=== PATIENT | female | born 1960 | race Caucasian/White ===

== ENCOUNTER 2016-12-22 10:32 | Outpatient (CLI) | END 2016-12-22 10:33 | disposition home or self-care (01) | LOC: LAB 10:32 | PROVIDERS: ATTEND Nurse Practitioner | DX: E03.9 Hypothyroidism, unspecified (principal) | CPT/HCPCS: 36415; 84443 ==

== ENCOUNTER 2017-01-19 16:30 | Outpatient (CLI) | END 2017-01-19 16:31 | disposition home or self-care (01) | LOC: LAB 16:30 | PROVIDERS: ATTEND Nurse Practitioner | DX: E03.9 Hypothyroidism, unspecified (principal) | CPT/HCPCS: 36415; 84443 ==

== ENCOUNTER 2017-03-09 14:41 | Outpatient (CLI) ==
[2017-03-09 15:00] LABS: BASOPHILS % (AUTO) 0.4 % (0.0-3.0); EOSINOPHILS # (AUTO) 0.1 K/ul (0.0-0.7); EOSINOPHILS % (AUTO) 1.7 % (0.0-7.0); HEMATOCRIT 41.8 % (37.0-47.0); HEMOGLOBIN 14.7 g/dl (12.0-16.0); IMMATURE GRANULOCYTE % (AUTO) 0.1 % (0.0-5.0); LYMPHOCYTES # (AUTO) 2.2 K/uL (0.60-3.4); LYMPHOCYTES % (AUTO) 29.9 (10.0-50.0); MEAN CORPUSCULAR HGB CONC 35.2 (31.8-35.4); MEAN CORPUSCULAR VOLUME 85.3 fl (81.0-99.0); MONOCYTES # (AUTO) 0.5 K/uL (0.4-2.0); MONOCYTES % (AUTO) 6.9 (0-10); NEUTROPHILS # (AUTO) 4.4 K/ul (2.0-6.9); PLATELET COUNT 183 10^3/uL (140-440); WHITE BLOOD COUNT 7.26 K/ul (4.6-10.2)
[2017-03-09 15:05] LABS: BILIRUBIN,URINE 1+ (NEGATIVE); KETONES,URINE Negative (NEGATIVE); LEUKOCYTE ESTERASE ,URINE Negative (NEGATIVE); NITRITE,URINE Negative (NEGATIVE); PH,URINE 5.5 (5-9); PROTEIN,URINE Negative (NEGATIVE); URINE, BLOOD Trace-intact (NEGATIVE)
[2017-03-09 15:19] LABS: ADD URINE MICROSCOPIC YES; BACTERIA,URINE TRACE (NOT PRESENT)
[2017-03-09 15:37] LABS: ALANINE AMINOTRANSFERASE < 6 U/L (12-78); ALBUMIN 3.7 g/dL (3.4-5.0); ALBUMIN/GLOBULIN RATIO 1.06; ALKALINE PHOSPHATASE 76 U/L (42-98); ANION GAP 10.6; ASPARTATE AMINO TRANSFERASE 10 U/L (15-37); BILIRUBIN,DIRECT 0.28 mg/dL (0.00-0.30); BILIRUBIN,TOTAL 0.73 mg/dL (0.00-1.20); BLOOD UREA NITROGEN 13 mg/dL (7-18); BUN/CREATININE RATIO 16.45; CALCIUM 8.3 mg/dL (8.2-10.2); CARBON DIOXIDE 27 mmol/L (21-32); CHLORIDE 105 mmol/L (98-107); CHOL/HDL RATIO 5.1 (4.5-5.5); CHOLESTEROL 173 mg/dL (0-200); CREATININE 0.79 mg/dL (0.60-1.30); GLUCOSE 94 mg/dL (70-110); HDL CHOLESTEROL 34 mg/dL (35-80); PHOSPHORUS 3.2 mg/dL (2.5-4.9); POTASSIUM 3.6 mmol/L (3.5-5.10); SODIUM 139 mmol/L (136-145); TOTAL PROTEIN 7.2 g/dL (6.4-8.2); TRIGLYCERIDES 120 mg/dL (30-150); VLDL CHOLESTEROL 24 mg/dL (2-30)
== END 2017-03-09 14:42 | disposition home or self-care (01) ==
LOC: LAB 14:41
PROVIDERS: ATTEND Nurse Practitioner
DX: E03.9 Hypothyroidism, unspecified (principal); F32.9 Major depressive disorder, single episode, unspecified; F41.9 Anxiety disorder, unspecified; I05.9 Rheumatic mitral valve disease, unspecified; Z00.00 Encounter for general adult medical examination without abnormal findings; Z79.01 Long term (current) use of anticoagulants
CPT/HCPCS: 36415; 80053; 80061; 81001; 82248; 84100; 84443; 85025

== ENCOUNTER 2017-07-19 15:38 | Outpatient (CLI) | END 2017-07-19 15:39 | disposition home or self-care (01) | LOC: LAB 15:38 | PROVIDERS: ATTEND Nurse Practitioner | DX: E03.9 Hypothyroidism, unspecified (principal) | CPT/HCPCS: 36415; 84443 ==

== ENCOUNTER 2017-11-05 12:28 | Outpatient (CLI) | END 2017-11-05 12:29 | disposition home or self-care (01) | LOC: LAB 12:28 | PROVIDERS: ATTEND Nurse Practitioner | DX: E03.9 Hypothyroidism, unspecified (principal); F32.9 Major depressive disorder, single episode, unspecified; F41.9 Anxiety disorder, unspecified; I05.9 Rheumatic mitral valve disease, unspecified; Z79.01 Long term (current) use of anticoagulants; Z79.890 Hormone replacement therapy; Z86.718 Personal history of other venous thrombosis and embolism | CPT/HCPCS: 36415; 80053; 80061; 83735; 84100; 84443; 85025 ==

== ENCOUNTER 2017-12-07 14:49 | Emergency (ER) ==
[2017-12-07 14:58] VITALS: BP 147/97; TEMP 98.4; BMI 25.2
--- NOTE | 2017-12-07 18:08 | ED.PDOC ---
General ED Provider: Dr. HALI ESPINOZA Chief Complaint: Respiratory Complaint Stated Complaint: Feeling bad. Exposed to influenza type B through her boyfriend. He was prescribed Tamiflu and prednisone yesterday. Has felt respiratory congestion but no fever or chills Time Seen by Physician: 17:50 Mode of Arrival: Walk-In Information Source: Patient Primary Care Provider: CHAD ARMENDARIZ Nursing and Triage Documentation Reviewed and Agree: Yes Reviewed sepsis parameters & appropriate labs ordered?: Yes System Inflammatory Response Syndrome: Not Applicable Sepsis Protocol: For patient's 13 years and over: Temp is 96.8 and below OR 101 and greater Pulse >90 BPM Resp >20/minute Acutely Altered Mental Status Are patient's symptoms suggestive of a new infection, such as: -Pneumonia -Skin, Soft Tissue -Endocarditis -UTI -Bone, Joint Infection -Implantable Device -Acute Abdominal Infection -Wound Infection -Meningitis -Blood Stream Catheter Infection -Unknown System Inflammatory Response Syndrome: Not Applicable Respiratory Complaint Exam - Respiratory Complaint/Exam Symptoms Are: Still present Timing: Constant Initial Severity: Moderate Current Severity: Mild Location: Throat, Chest Character: Reports: Non-productive cough, Dry cough Aggravating: Reports: None Alleviating: Reports: None Associated Signs and Symptoms: Reports: Wheezing Related History: Denies: Similar episode, Allergic reaction, Seasonal allergies History of Healthcare-Acquired Pneumonia: No Related Surgical History: Reports: None Pulmonary Embolism Risk Factors: None Cardiac Risk Factors: Reports: None Pseudomonas Risk Factors: Reports: None Tuberculosis Risk Factors: Reports: None Status Asthmaticus Risk Factors: Reports: None Home Oxygen Use: No Recent Stress Test: No Recent Echo/LV Function: No Current Antibiotic Use: No Current Asthma Medication Use: No Respiratory Distress: None Inadequate Respiratory Effort: No Dysphagia Present: No Stridor Present: No JVD Present: No Accessory Muscle Use: No Retractions: Not Present Diminished Breath Sounds: No Sinus Tenderness: None Grunting Respirations: No Kussmaul Respirations: No Differential Diagnoses: Influenza Review of Systems - Review Of Systems Constitutional: Reports: Malaise Eyes: Reports: No symptoms Ears, Nose, Mouth, Throat: Reports: Throat pain Respiratory: Reports: Cough, Wheezing Cardiac: Reports: No symptoms GI: Reports: No symptoms : Reports: No symptoms Musculoskeletal: Reports: No symptoms Skin: Reports: No symptoms Neurological: Reports: No symptoms Endocrine: Reports: No symptoms Hematologic/Lymphatic: Reports: No symptoms All Other Systems: Reviewed and Negative Past Medical History - Past Medical History Endocrine: Reports: None Cardiovascular: Reports: None Respiratory: Reports: None Hematological: Reports: None Gastrointestinal: Reports: None Genitourinary: Reports: None Neuro/Psych: Reports: None Musculoskeletal: Reports: None Cancer: Reports: None Last Menstrual Period: na - Surgical History General Surgical History: Reports: None - Family History Family History: Reports: None - Social History Smoking Status: Current every day smoker Hx Substance Use: No Alcohol Screening: None - Immunizations Tetanus Shot up to Date: Yes Physical Exam - Physical Exam Appearance: Well-appearing Ill-appearing: None Pain Distress: None Eyes: BRIJESH, EOMI, Conjunctiva clear ENT: Ears normal, Nose normal, Erythema Neck: Supple (slight tender peritonsillar) Respiratory: Airway patent, Breath sounds clear, Breath sounds equal (No wheezing or crackles) Cardiovascular: RRR, Pulses normal GI/: Soft, Nontender, No masses Musculoskeletal: Normal strength Skin: Warm Neurological: Sensation intact, Alert, Oriented Psychiatric: Affect appropriate Re-Evaluation - Re-Evaluation Time of Re-Evaluation: 18:20 Status: Unchanged Vital Signs Stable: Yes Appearance: NAD Lungs: Clear Skin: Warm and Dry Neuro: Alert and Oriented X3 CV: RRR Additional Comments: Explained results of testing Critical Care Note - Critical Care Note Total Time (mins): 0 Course - Course Orders, Labs, Meds: Lab Review 12/07/17 16:40 Influ A Molecular Assay Negative by naat Influ B Molecular Assay Negative by naat Orders Category Date Time Status FLU A/B MOLECULAR Stat LAB 12/07/17 16:40 Completed RAPID STREP SCREEN [MOLECULAR GROUP A STREP] Stat LAB 12/07/17 16:40 Completed Vital Signs: Temp Pulse Resp BP Pulse Ox 12/07/17 14:51 98.4 F 86 18 147/97 H 96 Departure - Departure Time of Disposition: 18:30 Disposition: HOME SELF-CARE Discharge Problem: Upper respiratory infection, viral Condition: Good Pt referred to PMD for follow-up: Yes (1 wk) IPMP verified?: No Additional Instructions: Explained since exposed to Type B influenza, based upon her symptoms will Rx Tamiflu to begin Stay well hydrated Take mucinex twice daily for relief of congestion F/U PCP in 1 week or return to ER if worsens Prescriptions: Oseltamivir Phosphate [Tamiflu] 75 mg PO Q12HR #10 tab Allergies/Adverse Reactions: Allergies acetaminophen [From Darvocet-N 100] Allergy (Verified 12/07/17 15:00) ciprofloxacin [From Cipro] Allergy (Verified 12/07/17 15:00) ciprofloxacin HCl [From Cipro] Allergy (Verified 12/07/17 15:00) propoxyphene napsylate [From Darvocet-N 100] Allergy (Verified 12/07/17 15:00) Home Medications: Ambulatory Orders Oseltamivir Phosphate [Tamiflu] 75 mg PO Q12HR #10 tab 12/07/17
== END 2017-12-07 18:27 | disposition home or self-care (01) ==
LOC: ED 14:49
DX: J06.9 Acute upper respiratory infection, unspecified (principal); F17.210 Nicotine dependence, cigarettes, uncomplicated
CPT/HCPCS: 87502; 87651; 99282

== ENCOUNTER 2018-04-08 12:37 | Outpatient (CLI) ==
--- NOTE | 2018-04-08 13:45 | DI ---
EXAM: Six views of the cervical spine. History: Cervical radiculopathy. Findings: No acute fracture or subluxation of the cervical spine. No prevertebral soft tissue swell ing. Predental space is not widened. Mild to moderate disc space narrowing at C5-6 with small osteo phytes. The oblique images demonstrate moderate neural foraminal narrowing on the left at C5-6. Impression: 1. No acute osseous abnormality of the cervical spine. 2. Degenerative changes at C5-6. Recommend correlation with CT or MRI.
--- NOTE | 2018-04-08 13:47 | DI ---
EXAM: Radiographs, lumbar spine HISTORY: Lumbar radiculopathy. COMPARISON: None available. TECHNIQUE: Five views. FINDINGS: Mild right convex curvature centered at the thoracolumbar junction noted. Alignment is no rmal. Vertebral body heights and disc heights are maintained. Mild multilevel endplate osteophyte f ormation and facet arthropathy noted. No fracture identified. Inferior vena cava filter noted with clips present in the abdomen. Atherosclerotic calcifications are present. IMPRESSION: Mild multilevel degenerative changes.
== END 2018-04-08 12:38 | disposition home or self-care (01) ==
LOC: RAD 12:37
PROVIDERS: ATTEND Pain Medicine Interventional Pain Medicine
DX: M54.12 Radiculopathy, cervical region (principal); M48.02 Spinal stenosis, cervical region; M47.812 Spondylosis without myelopathy or radiculopathy, cervical region; M51.16 Intervertebral disc disorders with radiculopathy, lumbar region; M51.17 Intervertebral disc disorders with radiculopathy, lumbosacral region; M51.36 Other intervertebral disc degeneration, lumbar region; M51.37 Other intervertebral disc degeneration, lumbosacral region; M47.816 Spondylosis without myelopathy or radiculopathy, lumbar region; M47.817 Spondylosis without myelopathy or radiculopathy, lumbosacral region

== ENCOUNTER 2018-12-06 15:23 | Outpatient (CLI) | END 2018-12-06 15:24 | disposition home or self-care (01) | LOC: LAB 15:23 | PROVIDERS: ATTEND Nurse Practitioner | DX: E03.9 Hypothyroidism, unspecified (principal); E78.2 Mixed hyperlipidemia; F32.9 Major depressive disorder, single episode, unspecified; F41.9 Anxiety disorder, unspecified; I10 Essential (primary) hypertension; Z86.718 Personal history of other venous thrombosis and embolism | CPT/HCPCS: 36415; 80053; 80061; 81001; 84443; 85025 ==

== ENCOUNTER 2019-01-13 09:11 | Outpatient (CLI) | END 2019-01-13 09:12 | disposition home or self-care (01) | LOC: LAB 09:11 | PROVIDERS: ATTEND Nurse Practitioner | DX: E03.9 Hypothyroidism, unspecified (principal); R31.9 Hematuria, unspecified; R73.9 Hyperglycemia, unspecified | CPT/HCPCS: 36415; 81001; 83036; 84443 ==

== ENCOUNTER 2019-05-09 12:52 | Outpatient (CLI) ==
--- NOTE | 2019-05-09 15:46 | DI ---
EXAM: Lumbar spine three views HISTORY: Radiculopathy. FINDINGS: Compared to 04/08/2018. General bone density appears normal. Redemonstration of mild sco liosis convex to the right centered at the thoracolumbar junction. There is mild arthropathy of the sacroiliac joints. Lateral projections reveal normal vertebral body height and alignment. Mild dege nerative endplate disease and moderate facet arthropathy is noted at the lumbosacral junction. Vascu lar calcifications are present. IVC filter again noted to the right of L1 vertebral body. IMPRESSION: 1. Mild to moderate degenerative change of the lower spine similar to that previously seen. 2. Stable mild scoliosis. 3. IVC filter. 4. Atherosclerotic disease.
--- NOTE | 2019-05-09 15:49 | DI ---
EXAM: Cervical spine three view HISTORY: Radiculopathy COMPARISON: 04/08/2018 FINDINGS: C7 obscured on the lateral view. Mild reversal of the normal cervical lordosis. Mild rev ersal of the normal cervical lordosis. Mild intervertebral disc space narrowing C5-C6 with small andre inal osteophyte formation. Prevertebral soft tissues appear normal. IMPERSSION: 1. Chronic discogenic degenerative disease C5-C6. 2. Reversal of the normal cervical lordosis.
--- NOTE | 2019-05-10 03:36 | MRI ---
EXAM: Cervical spine MRI without contrast. HISTORY: Radiculopathy. COMPARISON: Cervical spine radiographs 05/09/2019 and cervical spine radiographs 04/08/2018. TECHNIQUE: Multiplanar, multisequence MR images were acquired cervical spine without contrast. FINDINGS: The craniocervical junction is normal and the cervical cord has no abnormal intramedullary T2 hyperintensities. There is mild gentle flexion of the mid cervical spine and there is 1.5 mm of retrolisthesis of C5 on C6. There is ventral spondylosis and moderate disc space narrowing with mild endplate irregularity at C5-6. There is desiccation of the cervical intervertebral discs. Canal di ameter is developmentally narrow. There are no paravertebral masses. A few small nasopharyngeal sub mucosal cysts are present. Visualized lung apices are clear. C2-3: The intervertebral disc is normal. C3-4: There is a posterior disc osteophyte complex that is asymmetric to the right with a more focal right posterolateral component that merges with right uncovertebral hypertrophy. This effaces the r ight lateral recess where it may adversely contact the ventral right C4 nerve root and slightly inden ts the right cord. There is minor right neural foraminal stenosis and no central canal stenosis. C4-5: There is a posterior disc osteophyte complex and small central disc protrusion. This slightly indents the ventral cord although cerebrospinal fluid is preserved around the cord. There is no saad tral canal stenosis. Neural foramina are patent. C5-6: There is retrolisthesis of C5 on C6 and there is a dorsal spondylotic ridge and bilateral unco vertebral hypertrophy. There is moderate right and mild left neural foraminal stenosis. There is no central canal stenosis. AP diameter of the thecal sac is 9.8 mm. C6-7: There is a mild right posterior disc bulge with endplate osteophytes and right uncovertebral h ypertrophy. There is minor right foraminal stenosis. C7-T1: The intervertebral disc is normal. Mild bilateral facet arthropathy is present without debbi inal stenosis. There is no central canal stenosis. IMPRESSION: 1. Mild cervical degenerative spondylosis without spinal stenosis. 2. Small central disc protrusion C4-5. 3. Right lateral recess stenosis C3-4 where there may be encroachment on the ventral right C4 nerve root. 4. Moderate right C5-6 neural foraminal stenosis.
== END 2019-05-09 12:53 | disposition home or self-care (01) ==
LOC: RAD 12:52
PROVIDERS: ATTEND Pain Medicine Interventional Pain Medicine
DX: M47.812 Spondylosis without myelopathy or radiculopathy, cervical region (principal); M54.12 Radiculopathy, cervical region; M48.02 Spinal stenosis, cervical region; M51.36 Other intervertebral disc degeneration, lumbar region; M51.16 Intervertebral disc disorders with radiculopathy, lumbar region; M47.816 Spondylosis without myelopathy or radiculopathy, lumbar region; M51.37 Other intervertebral disc degeneration, lumbosacral region; M51.17 Intervertebral disc disorders with radiculopathy, lumbosacral region; M47.817 Spondylosis without myelopathy or radiculopathy, lumbosacral region

== ENCOUNTER 2019-05-10 12:44 | Outpatient (CLI) ==
--- NOTE | 2019-05-10 15:50 | MRI ---
EXAM: Lumbar spine MRI without contrast. HISTORY: Degenerative disc disease and radiculopathy. COMPARISON: Lumbar spine radiographs 05/09/2019, TECHNIQUE: Multiplanar, multisequence MR images were acquired of the lumbar spine without contrast. FINDINGS: Five non-rib bearing lumbar vertebra are present. The conus medullaris ends at L1 and has normal morphology and signal intensity. Canal diameter is developmentally normal. There is mild th oracolumbar dextroscoliosis centered at T12-L1 and there is 3 mm retrolisthesis of L5 on S1. The sup erior endplate of S1 is smaller than the inferior endplate of L5. The lumbar vertebra are generally normal in height and intrinsic bone marrow signal. A benign intraosseous hemangioma is present at T1 2. There is minor lumbar ventral spondylosis and minor irregularity of the L3 inferior endplate. Th ere is disc desiccation from L1-2 through L5-S1 and there is mild disc space narrowing at L5, S1. The partially visualized liver has central intrahepatic biliary ductal dilatation and there is dilata tion of the common bile duct which tapers to the duodenum in this post cholecystectomy patient. The kidneys are unremarkable. There are no paravertebral masses. T12-L1: The intervertebral disc is normal. Bilateral perineural cysts are present. L1-2: There is a minor physiologic disc bulge that is asymmetric to the right and mild bilateral fac et and ligamentum flavum hypertrophy, greater on the left. There is no central canal stenosis or for aminal stenosis. L2-3: There is a mild spondylotic disc bulge which is asymmetric to the right which may adversely co ntact the right L2 nerve exiting the neural foramen. Mild bilateral facet ligamentum flavum hypertro phy is present. There is minor right foraminal stenosis. L3-4: There is a minor spondylotic disc bulge that is asymmetric to the right which minimally narrow s the inferior neural foramina bilaterally and mild bilateral facet arthropathy and ligamentum flavum hypertrophy, greater on the left. There is minor bilateral foraminal stenosis, greater on the left. L4-5: There is a minor spondylotic disc bulge that is asymmetric to the right with a probable tiny c entral disc protrusion and annular tear. Mild bilateral facet and ligamentum flavum hypertrophy is p resent. There is minor bilateral foraminal stenosis and no central canal stenosis. L4-5: There is a mild spondylotic disc bulge with a tiny central/left paracentral annular fissure. Minor bilateral facet hypertrophy is present with minor bilateral foraminal stenosis. There is no ce ntral canal stenosis. L5-S1: There is retrolisthesis of L5 on S1 and there is a mild spondylotic disc bulge/pseudo disc bu lge with a probable tiny right paracentral disc protrusion and annular tear. There is mild right tatum ral foraminal stenosis. IMPRESSION: 1. Minor to mild lumbar degenerative spondylosis and facet arthropathy without central canal stenosi s. 2. No acute compression fractures or pars interarticularis defects.
== END 2019-05-10 12:45 | disposition home or self-care (01) ==
LOC: RAD 12:44
PROVIDERS: ATTEND Pain Medicine Interventional Pain Medicine
DX: M47.812 Spondylosis without myelopathy or radiculopathy, cervical region (principal); M54.12 Radiculopathy, cervical region; M48.02 Spinal stenosis, cervical region; M51.36 Other intervertebral disc degeneration, lumbar region; M51.16 Intervertebral disc disorders with radiculopathy, lumbar region; M47.816 Spondylosis without myelopathy or radiculopathy, lumbar region; M51.37 Other intervertebral disc degeneration, lumbosacral region; M51.17 Intervertebral disc disorders with radiculopathy, lumbosacral region; M47.817 Spondylosis without myelopathy or radiculopathy, lumbosacral region